=== PATIENT | female | born 1990 | race Caucasian/White ===

== ENCOUNTER → 2021-01-31 11:24 | Outpatient (CLI) | payer BC, OTHER, MEDICAID, SELFPAY ==
--- NOTE | 2021-01-31 11:32 | DI.MRI.S_ITS ---
PROCEDURE: MR LUMBAR SPINE WO CON INDICATIONS: Dorsalgia, unspecified TECHNIQUE: Noncontrast sagittal T1 spin echo and T2 fast echo, sagittal STIR, axial T1 and T2 fast spin echo through the lumbar spine. In cases with scoliosis, additional coronal T2 fast spin echo may be performed. COMPARISON: None. FINDINGS: Image quality: Excellent. Alignment and Curvature: There is normal bony alignment. Bone Marrow: Marrow is of normal overall signal. No acute vertebral body compression fractures. Spinal Cord: Normal appearance and position of the conus the Paraspinous Soft Tissues: No paravertebral masses. T12-L1: No spinal canal or neural foraminal stenosis. L1-L2: No spinal canal or neural foraminal stenosis. L2-L3: No spinal canal or neural foraminal stenosis. L3-L4: No spinal canal or neural foraminal stenosis. L4-L5: Mild disc desiccation and height loss. Circumferential disc bulge minimally flattens the ventral thecal sac. Small foraminal components of the disc bulge combine with facet hypertrophy to produce mild bilateral neural foraminal narrowing. There are small to moderate-sized facet effusions. L5-S1: Disc bulge flattens the left paracentral and subarticular zone thecal sac. No mass effect upon the traversing S1 nerve roots. Foraminal components of the disc bulge contribute to mild neural foraminal narrowing on the left in conjunction with mild facet hypertrophy. IMPRESSION: Mild degenerative changes at L4-L5 and L5-S1 without evidence of focal nerve root impingement. Dictated by: Krzysztof Diaz M.D. on 01/31/2021 at 12:55 Approved by: Krzysztof Diaz M.D. on 01/31/2021 at 13:08
== END ==
PROVIDERS: PCP Physician Assistant Medical; Referring Provider Psychiatry & Neurology Neurology; Visit Provider Psychiatry & Neurology Neurology
DX: M54.9 Dorsalgia, unspecified (principal); M79.605 Pain in left leg; M47.816 Spondylosis without myelopathy or radiculopathy, lumbar region; M47.817 Spondylosis without myelopathy or radiculopathy, lumbosacral region
CPT/HCPCS: 72148

== ENCOUNTER 2021-04-11 07:35 | Emergency (ER) | payer BC, OTHER, MEDICAID, SELFPAY ==
[2021-04-11] VITALS (7 sets, daily range): BP systolic 122–136; BP diastolic 59–80; PULSE 69–82; RESP 18; TEMP 36.4; O2SAT 96–97; BMI 41.8
--- NOTE | 2021-04-11 07:46 | ED.PREGNANCY ---
HPI - General Chief complaint: Urogenital-Female Stated complaint: miscarriage. sent by [facility] ER Time Seen by Provider: 04/11/21 07:46 Source: patient and old records reviewed (Records sent from [facility] [place]) Mode of arrival: Ambulatory Limitations: no limitations History of Present Illness HPI Narrative: This is a 30-year-old female comes emergency department sent from [facility] in [place] for formal ultrasound. Patient states that she is approximately 5 weeks by dates. She states her last menstrual period was March 06, 2021 patient states that she has had some mild nausea, breast tenderness but yesterday developed discomfort after having several episodes of diarrhea in her left lower abdomen that radiated down her leg. That has since resolved although it last for greater than 30 minutes. She did have some mild cramping in her lower abdomen which initially related to having the diarrhea. When that did not resolve she contacted her primary care followed by the nursing hotline who recommended she come to the hospital for evaluation. Patient has not had any fevers. She has had nausea but no vomiting. She denies any abdominal pain. She denies any back or flank pain. She states the pain was really more in the inguinal area. Patient has not had any melena or hematochezia. She denies any dysuria, urgency or sense of frequency. She denies any vaginal bleeding or fluid leakage. Patient did have labs, pelvic exam including a hCG, Rh status and Trichomonas, gonorrhea chlamydia testing at the outside facility in the last 12 hours. Date of Last Menstrual Period: 03/06/21 Patient : Yes Expected Date of Delivery: 12/11/21 Related Data Allergies Allergy/AdvReac Type Severity Reaction Status Date / Time gabapentin Allergy Verified 04/11/21 07:48 Penicillins Allergy Verified 04/11/21 07:48 Review of Systems Review of Systems ROS Unobtainable: All systems reviewed & are unremarkable except as noted in HPI and below PMFSH - Past Medical History Medical history: Reports hypertension Surgical history: Reports appendectomy Date of Last Menstrual Period: 03/06/21 Patient : Yes Expected Date of Delivery: 12/11/21 Exam Narrative Exam Narrative: GENERAL: Alert and oriented x three, well-nourished female in mild distress. HEENT: Head normocephalic, atraumatic, EOMI, pupils reactive, face symmetric, moist mucous membranes NECK: Supple, full range of motion CARDIOVASCULAR: Regular rate and rhythm without murmurs, rubs or gallops. RESPIRATORY: Breath sounds equal bilaterally, no wheezes rales or rhonchi. ABDOMEN: Soft, nontender with palpation. Normoactive bowel sounds all 4 quadrants. No guarding or rebound, rigidity, no mass, no inguinal hernia noted. : No CVA tenderness EXTREMITIES: Normal range of motion, no clubbing or edema. Neurovascularly intact NEUROLOGICAL: Cranial nerves II through XII grossly intact. Moving all extremities SKIN: Warm, dry, no petechiae, no rashes or lesions. Initial Vital Signs Initial Vital Signs: Vital Signs Temperature 97.5 F L 04/11/21 07:49 Pulse Rate 82 04/11/21 07:49 Respiratory Rate 18 04/11/21 07:49 Blood Pressure 124/80 04/11/21 07:49 Pulse Oximetry 96 04/11/21 07:49 Course Orders Ordered: ED Orders 04/11/21 08:54 US OB <= 14 weeks fetus Stat Vital Signs Vital signs: Vital Signs - 8 hr 04/11/21 07:49 04/11/21 08:09 04/11/21 08:10 Temperature 97.5 F L Pulse Rate 82 75 Respiratory Rate 18 Blood Pressure 124/80 136/68 Pulse Oximetry 96 97 96 04/11/21 08:30 04/11/21 09:00 04/11/21 09:01 Temperature Pulse Rate 69 76 78 Respiratory Rate Blood Pressure 123/71 129/59 L Pulse Oximetry 97 97 97 MDM - OB/Uterine Contractions Lab Data Attestation: I reviewed the patient's lab results. Labs: Urine Dip Bedside Urine Glucose Negative Bedside Urine Bilirubin - Negative Bedside Urine Ketone - Negative Urine Specific [place] 1.020 Bedside Urine Occult Blood - Negative Bedside Urine pH 6.5 Bedside Urine Protein - Negative Bedside Urine Urobilinogen - Negative Bedside Urine Nitrite - Negative Bedside Urine Leukocytes - Negative Esterase Imaging Data US - OB: Radiologist's Impression: [address] [address]Pct[place]xycoe ReportSigned Patient: Gwendolyn Estrada LMR#: [id number]: 1990Acct:[id number]/Sex: 30 / FDate of Service: 04/11/21Loc: EDAccession Number: [id number] Procedure: US OB <= 14 weeks fetus Ordering Provider: Monet Pittman D.O. PROCEDURE: US OB <= 14 WEEKS FETUS INDICATIONS: CRAMPING OUTSIDE/PRIOR DATING DATA: Last menstrual period (LMP): 03/06/2021. LMP-based estimated date of delivery (MEENA): 12/11/2021. First dating scan (date and location): [facility], 04/11/2021. Estimated date of delivery (MEENA) from first dating scan: 12/06/2021. TECHNIQUE: Real-time scanning was performed of the fetus and maternal pelvic organs, with image documentation. Endovaginal scanning was also performed to better visualize the fetus and maternal ovaries. COMPARISON: None. FINDINGS: Embryo: A single intrauterine is seen. Cardiac motion is visualized, yet no heart rate can be measured in the M mode. The crown-rump length measures 0.24 cm, corresponding to an estimated gestational age of 5 weeks 6 days. It is too early for detailed anatomic assessment. By visual inspection, the amount of amniotic fluid is within normal limits. A yolk sac can be seen. No significant findings of subchorionic/perigestational hemorrhage are seen. Measurement variability in dating: +/- 4 weeks by LMP, +/- 7 days by mean sac diameter (use before 6 weeks gestation if crown-rump length not able to be measured), +/- 5 days by crown-rump length (up to 8 weeks 6 days gestation), +/- 7 days by crown-rump length (up to 13 weeks 6 days gestation). Maternal organs: The right ovary is unremarkable. The left ovary is not seen. IMPRESSION: A single live intrauterine is seen. Close clinical followup, with serial beta-hCG and serial ultrasound are recommended, if clinically appropriate. Dictated by: Yaniv Mccarthy M.D. on 04/11/2021 at 9:17 Approved by: Yaniv Mccarthy M.D. on 04/11/2021 at 9:19 MDM Narrative Medical decision making narrative: Patient did not have her labs with her and they were not sent in advance. Discussed with patient will try to obtain these she has had them in the last 12 hours for evaluation. For unable to plan to repeat her labs or if we were able to obtain the but any seem appropriate to repeat will have discussion with patient. Patient's labs right her HCG was 15,000. Rh was obtained but had not resulted from the outside facility but patient has had several prior pregnancies and never required RhoGAM so deferred giving today. Ultrasound does show is consistent with patient's current dates. Discussed with patient recommend close follow-up with repeat HCG and serial ultrasound testing patient lives in [place] and they are able to obtain HCG there daily and have US this sunday in 48 hours. Discharge Plan Departure Patient Disposition: Home Clinical Impression: Instructions: DI for Abdominal Pain -- Early Activity Restrictions/Additional Instructions: Follow up with her care provider in the next 24-48 hours for recheck. They may wish to recheck an hCG the next 12-24 hours. Your ultrasound today does show a with dates at 5 weeks and 6 days. They may also wish to recheck with serial ultrasounds. Your hCG was not rechecked as it has only been approximately 12 hours today. Please return for fevers, new or worsening abdominal pain, flank or pelvic pain. Persistent vomiting, vaginal bleeding, lightheadedness, passing out or other new or concerning symptoms. Referrals: Leelee Luque PA-C [Primary Care Provider] -
--- NOTE | 2021-04-11 08:15 | PC.NURSE ---
Patient had 1 episode fo diarrhea last night with pain in abdomen that went down left elg. Went to [facility] and they did blood work with n abnormally high HCG... like 15,000 and an abdominal ultrasound that showed an empty sac. Sent here for transvaginal ultrasound.
--- NOTE | 2021-04-11 08:54 | DI.US.S_ITS ---
PROCEDURE: US OB <= 14 WEEKS FETUS INDICATIONS: CRAMPING OUTSIDE/PRIOR DATING DATA: Last menstrual period (LMP): 03/06/2021. LMP-based estimated date of delivery (MEENA): 12/11/2021. First dating scan (date and location): [facility], 04/11/2021. Estimated date of delivery (MEENA) from first dating scan: 12/06/2021. TECHNIQUE: Real-time scanning was performed of the fetus and maternal pelvic organs, with image documentation. Endovaginal scanning was also performed to better visualize the fetus and maternal ovaries. COMPARISON: None. FINDINGS: Embryo: A single intrauterine is seen. Cardiac motion is visualized, yet no heart rate can be measured in the M mode. The crown-rump length measures 0.24 cm, corresponding to an estimated gestational age of 5 weeks 6 days. It is too early for detailed anatomic assessment. By visual inspection, the amount of amniotic fluid is within normal limits. A yolk sac can be seen. No significant findings of subchorionic/perigestational hemorrhage are seen. Measurement variability in dating: +/- 4 weeks by LMP, +/- 7 days by mean sac diameter (use before 6 weeks gestation if crown-rump length not able to be measured), +/- 5 days by crown-rump length (up to 8 weeks 6 days gestation), +/- 7 days by crown-rump length (up to 13 weeks 6 days gestation). Maternal organs: The right ovary is unremarkable. The left ovary is not seen. IMPRESSION: A single live intrauterine is seen. Close clinical followup, with serial beta-hCG and serial ultrasound are recommended, if clinically appropriate. Dictated by: Yaniv Mccarthy M.D. on 04/11/2021 at 9:17 Approved by: Yaniv Mccarthy M.D. on 04/11/2021 at 9:19
== END 2021-04-11 10:40 | disposition home or self-care (01) ==
PROVIDERS: Emergency Provider Emergency Medicine; PCP Physician Assistant Medical
DX: O26.91 Pregnancy related conditions, unspecified, first trimester (principal); R10.9 Unspecified abdominal pain
CPT/HCPCS: 76801; 76817; 81003; 99283

== ENCOUNTER → 2021-05-02 14:00 | Outpatient (CLI) | payer BC, SELFPAY ==
[2021-05-02 15:44] LABS: Add Manual Diff / Slide Review NO; Basophils Absolute Auto 0 /uL (0-100); Basophils Percent Auto 0.1 % (0-2); Eosinophils Absolute Auto 200 /uL (0-450); Eosinophils Percent Auto 1.5 % (2-4); Hematocrit 40.4 % (36-46); Hemoglobin 13.5 g/dL (12.0-16.0); Lymphocytes Absolute Auto 3600 /uL (1100-4500); Lymphocytes Percent Auto 29.2 % (25-40); Mean Corpuscular HGB Conc 33.5 % (30-36); Mean Corpuscular Hemoglobin 28.6 PG (26-34); Mean Corpuscular Volume 85.6 fL (80-100); Monocytes Absolute Auto 600 /uL (0-900); Monocytes Percent Auto 4.9 % (3-14); Neutrophils Absolute Auto 8000 /uL (1500-7000); Neutrophils Percent Auto 64.3 % (50-75); Platelet Count 315 X10^3/uL (150-400); Red Blood Cell Count 4.72 X10^6/uL (4.0-5.2); Red Cell Distribution Width 13.9 % (11.6-14.8); White Blood Cell Count 12.5 X10^3/uL (4.5-11.0)
[2021-05-02 15:44] LABS: UR Morphine/Opiate cutoff 300 Negative (Negative); Ur Creatinine Normal (Normal); Ur Specific Gravity Normal (Normal); Urine Amphetamines Negative (Negative); Urine Barbiturates Negative (Negative); Urine Benzodiazepines Negative (Negative); Urine Cocaine Negative (Negative); Urine MDMA Negative (Negative); Urine Methadone Negative (Negative); Urine Methamphetamines Negative (Negative); Urine Oxycodone Negative (Negative); Urine Phencyclidine Negative (Negative); Urine Tetrahydrocannabinol Negative (Negative); Urine Tricyclic Antidepressant Negative (Negative); Urine pH Normal (Normal)
[2021-05-02 15:52] LABS: Hemoglobin A1C% w Est Avg Glu 5.6 % (4.0-6.0)
[2021-05-02 16:16] LABS: Appearance Urine UA CLEAR; Bilirubin Urine UA NEGATIVE (NEGATIVE); Color Urine UA YELLOW; Glucose Urine UA NEGATIVE (Negative); Ketones Urine UA NEGATIVE (NEGATIVE); Leukocyte Esterase Urine UA NEGATIVE (NEGATIVE); Nitrite Urine UA NEGATIVE (Negative); Occult Blood Urine UA TRACE-LYSED (Negative); Protein Urine UA NEGATIVE (Negative); Specific Gravity Urine UA 1.025 (1.000-1.035); Urobilinogen Urine UA 0.2 E.U./dL (0.2)
[2021-05-02 16:29] LABS: Glucose 90 mg/dL (70-100)
[2021-05-02 17:04] LABS: Hepatitis B Surface Antigen NEGATIVE s/c (NEGATIVE); Rubella Antibody IgG 20.3 IU/mL (>15)
[2021-05-02 17:16] LABS: HIV 1 & 2 Ab/Ag 4th Gen Combo NEGATIVE (NEGATIVE); Hep C Virus Ab w/Reflex Quant NEGATIVE s/c (NEGATIVE)
[2021-05-02 17:17] LABS: GTT (PREG) 1 Hour PP 50gm Dose 144 mg/dL (76-139)
[2021-05-03 07:10] LABS: RPR Screen Non Reactive (Non Reactive)
[2021-05-03 10:41] LABS: Varicella IgG Antibody 1832 index (Immune >165)
== END ==
PROVIDERS: PCP Physician Assistant Medical; Referring Provider Family Medicine; Visit Provider Family Medicine
DX: O99.210 Obesity complicating pregnancy, unspecified trimester (principal); Z3A.08 8 weeks gestation of pregnancy
CPT/HCPCS: 36415; 80055; 80305; 81003; 82947; 82950; 83036; 86787; 86803; 86850; 86900; 86901; 87077; 87086; 87389

== ENCOUNTER → 2021-06-07 15:08 | Outpatient (CLI) | payer BC, SELFPAY ==
--- NOTE | 2021-06-07 15:15 | DIET.PN ---
Dietary Progress Note Assessment: 30y F attending telehealth visit for GDM, pt is 14w at this time. Pt has not been checking BG, doesn't feel she is really GDM, has had issues in past with hypoglycemia. Pt instructed to check BG morning of our appt but forgot. Pt unable to find glucose log paper then found it, 05/20/21 FBG 89, others 90, 83, 94, 93, 88, 85. Pt has gone past 2w without BG checks. As visit progresses, pt opens up to the process and is receptive to testing twice per day, alternating B/L/D. Pt taking notes during visit. Small meals in general as is feeling some nausea c large meals during Breakfast: small portion eggs c potato hash Lunch: chicken salad c light sanchez on seed bread and green peas Dinner: Soup or stew or grilled steak/chicken and salad HT: 5'11 WT: 303# BMI: 42.3 Labs: A1c 5.6, 1h GTT 144 H Nutrition Diagnosis: altered nutrition related laboratory values (1h GTT) r/t endocrine dysfunction and nutrition related knowledge deficit aeb 1h GTT at 10w elevated 144, pt BMI 42.3, pt reports not knowing what carbs are good vs. bad, pt inconsistent c BG checks. Interventions: 1. Discussed insulin resistance in . Discussed optimal BG readings and how and when to test. FBG <95, 1hPP <140. Pt has agreed to start with 2x/d, always fasting and pick one meal. 2. To support healthy BG levels, educated pt on balanced plate method of carbohydrate counting as pt does not feel she will be consistent with carb counting. Pt patrick a healthy plate, 1/4 PRO, 1/4 CHO, and 1/2 non-starchy veg and fruit with food examples in each category. Reviewed commonly eaten meals by patient and problem solved to fit balanced plate. Pt voiced understanding. Diet Order: CCD3 Monitoring/Evaluations: Telehealth f/u in 2w to review food and BG logs.
== END ==
PROVIDERS: PCP Physician Assistant Medical; Referring Provider Specialist; Visit Provider Specialist
DX: O24.419 Gestational diabetes mellitus in pregnancy, unspecified control (principal); Z3A.14 14 weeks gestation of pregnancy; Z71.3 Dietary counseling and surveillance
CPT/HCPCS: 97803

== ENCOUNTER → 2021-06-21 15:05 | Outpatient (CLI) | payer BC, SELFPAY ==
--- NOTE | 2021-06-21 15:07 | DIET.PN ---
Addendum entered by Lupe Darnell 07/05/21 14:51: phone call c pt on 07/05/21 regarding diet to support cardiovascular health. Mailed pt handouts on Sodium, Sugar, Saturated vs Unsaturated Fat, Dietary Fiber, Anti-Inflammatory Foods. Original Note: Dietary Progress Note GDM telehealth f/u for 30y F at 16w Has tachycardia with Zio patch, has expedited appointment with [facility] tomorrow. Specialist at following pt as well and recommending bid BG checks with 4x on a weekend day, pt sending weekly BG logs to this specialist. Named this child Miguel and states he is picky en utero likes chicken pot pie, spaghetti, fish, meatloaf, carnitas tacos on corn tortillas, chicken Caesar salads. Snacking on apples and string cheese. Pt feels she is eating less junk food and smaller portion sizes since our last visit. FBG this am is 91, no BG >140 PP, highest so far is [address] f/u in 6w when pt is 24w to review BG, eating pattern and address any nutrition concerns at that time.
== END ==
PROVIDERS: PCP Physician Assistant Medical; Referring Provider Specialist; Visit Provider Specialist
DX: Z34.92 Encounter for supervision of normal pregnancy, unspecified, second trimester (principal); R00.0 Tachycardia, unspecified; Z3A.16 16 weeks gestation of pregnancy; Z71.3 Dietary counseling and surveillance
CPT/HCPCS: 97803

== ENCOUNTER → 2021-07-22 08:32 | Outpatient (CLI) | payer BC, OTHER, SELFPAY ==
--- NOTE | 2021-07-22 08:34 | DI.ECHO.S_ITS ---
[facility]---------+ [facility] +---------+ : : [address] : : : : [id number] : : : : Phone: [phone] Echocardiogram Report + + :Name: KEDAR RAMIREZ Study Date: 07/22/2021 Height: 71 in : [facility] ReadingLocation: Weight: 300 lb : : Gender: Female BSA: 2.5 m2 : :: 1990 Age: 30 yrs BP: 115/89 mmHg: :Reason For Study: SVT : :Ordering Physician: ISRRAEL, : :AKASH Performed By: Omar Javed : :Referring: AKASH ARCOS : + + Interpretation Summary The left ventricle is normal in size and wall thickness. The ejection fraction is estimated to be 60-65%. The right ventricle is normal in size and function. No significant valvular pathology seen. The IVC is of normal diameter and collapses greater than 50% with a sniff. This suggests a low right atrial pressure of 3 mm Hg. Procedure: A two-dimensional transthoracic echocardiogram with color flow and Doppler was performed. The study quality was technically adequate. There is no prior echocardiogram noted for this patient. The patient was in normal sinus rhythm during the exam. Left Ventricle: The left ventricle is normal in size and wall thickness. There is no thrombus. Left ventricular systolic function is normal. The ejection fraction is estimated to be 60-65%. There are no focal wall motion abnormalities. MV E/A: 1.1 Med Peak E' Marc: 8.0 cm/sec E/E' med: 8.7. Right Ventricle: The right ventricle is normal in size and function. Atria: Both atria are normal in size. There is no Doppler evidence for an interatrial shunt. Mitral Valve: The mitral valve is normal in structure and function. Redundant elongated chordae are noted. There is no mitral regurgitation noted. Aortic Valve: The aortic valve is normal in structure and function. The aortic valve is trileaflet. There is no aortic valve stenosis. No aortic regurgitation is present. Tricuspid Valve: The tricuspid valve is not well visualized, but is grossly normal. No tricuspid regurgitation. Pulmonary artery pressures cannot be estimated because of the lack of a measurable TR jet velocity but the IVC suggests a CVP of around 3 mmHg. Pulmonic Valve: The pulmonic valve is normal in structure and function. There is trace pulmonic regurgitation. Great Vessels: The aortic root is normal size. The dimensions of the ascending aorta are normal. The IVC is of normal diameter and collapses greater than 50% with a sniff. This suggests a low right atrial pressure of 3 mm Hg. Pericardium/ Pleura There is no pericardial effusion. There is no pleural effusion. MMode/2D Measurements & Calculations LVIDd: 4.9 cm LVOT diam: 2.3 cm LVIDs: 3.3 cm Ao root diam: 3.5 cm FS: 33.7 % asc Aorta Diam: 3.1 cm IVSd: 1.0 cm LVPWd: 0.90 cm LV floyd. diameter/BSA (cm/m^2): 2.0 LV sys. diameter/BSA (cm/m^2): 1.3 LA A2 area: 17.9 cm2 RA long axis: 4.8 cm LA A4 area: 16.5 cm2 RA area: 12.5 cm2 LA length (vol): 4.9 cm RA vol: 27.3 ml LA vol: 50.7 ml RA : 10.9 ml/m2 LA vol index: 20.2 ml/m2 TAPSE: 2.5 cm Doppler Measurements & Calculations Ao V2 max: 159.2 cm/sec LVOT Max Marc: 139.4 cm/sec Ao V2 mean: 104.6 cm/sec LV V1 max P.8 mmHg Ao max P.1 mmHg LV V1 VTI: 21.0 cm Ao mean P.9 mmHg REEMA(I,D): 3.6 cm2 Ao V2 VTI: 24.1 cm REEMA(V,D): 3.6 cm2 sev ratio: 0.87 REEMA indexed to BSA (cm^2/m^2): 1.5 MV E max marc: 69.8 cm/sec PA pr(Accel): 22.5 mmHg MV A max marc: 64.4 cm/sec MV E/A: 1.1 Med Peak E' Marc: 8.0 cm/sec E/E' med: 8.7 Lat Peak E' Marc: 12.8 cm/sec E/E' lat: 5.4 E/e' average: 7.1 MV dec time: 0.27 sec SV(LVOT): 87.5 ml Reading Physician:05:31 PM
== END ==
PROVIDERS: PCP Physician Assistant Medical; Referring Provider Family Medicine; Visit Provider Family Medicine
DX: O99.419 Diseases of the circulatory system complicating pregnancy, unspecified trimester (principal); I47.1 Supraventricular tachycardia
CPT/HCPCS: 93306

== ENCOUNTER → 2021-08-02 14:04 | Outpatient (CLI) | payer BC, SELFPAY ==
--- NOTE | 2021-08-02 14:06 | DIET.PN1 ---
Dietary Progress Note RD telehealth f/u for 30y F with heart condition and gestational diabetes with due date in late Nov 2021. Pt has 4 visits at as she is enrolled in research study using CGM for GDM. Pt loves the fact that she gets to use CGM as it gives her real-time data on how the foods she eats affects her BG and body. Pt followed by highway engineering teacher at . Pt has had a huge shift in mindset since our last visit. She reports her is on board now with dietary changes and they have sat down several times to strategize on handouts I gave her. Positive changes include: purchase of airfryer- pt used to deep crowley foods on a weekly basis, pt now only using oil-free air fryer. pt and spouse now reading all food labels for sodium content, only purchasing low sodium foods including convenience foods and canned items. pt avoiding saturated fat and fatty cuts of means, instead choosing lean proteins and game meats. Pt very upbeat during consultation as she feels her eyes have been opened to healthy eating and she, her , and son are all benefiting and feeling better with the new habits they are developing. Pt looks forward to continuing healthy eating pattern even after of new son. F/U in 4w to assess progress and problem solve barriers.
== END ==
PROVIDERS: PCP Physician Assistant Medical; Referring Provider Physician Assistant Medical; Visit Provider Physician Assistant Medical
DX: O24.419 Gestational diabetes mellitus in pregnancy, unspecified control (principal); O26.899 Other specified pregnancy related conditions, unspecified trimester; I47.1 Supraventricular tachycardia
CPT/HCPCS: 97803

== ENCOUNTER 2021-09-12 20:43 | Observation (INO) | payer BC, SELFPAY ==
[2021-09-12] MEDS: LACTATED RINGERS 1,000 ML 150 ML IV (22:18)
[2021-09-12] MEDS: ACETAMINOPHEN 325 MG TABLET 975 MG PO (22:18)
[2021-09-13] MEDS: LACTATED RINGERS 1,000 ML 150 ML IV (07:55)
[2021-09-13 08:39] LABS: COVID19 - ADMIT (NP swab/PCR) Negative (Negative)
--- NOTE | 2021-09-13 09:20 | DI.US.S_ITS ---
PROCEDURE: US RENAL COMPLETE INDICATIONS: RIGHT FLANK PAIN TECHNIQUE: Real-time scanning was performed of the kidneys and bladder, with image documentation. COMPARISON: [facility] Outside Film, CT, CT ABDOMEN PELVIS WITH CONTRAST, 12/08/2019, 12:05. FINDINGS: Kidneys: Right kidney measures 14.3 cm long. The renal cortex thickness measures 1.6 cm. Mild hydronephrosis. A 1.6 cm shadowing echogenic focus is seen in the lower pole. The left kidney measures 13.8 cm long. The renal cortical thickness is 2.2 cm. Bladder: Pre-void bladder volume is 287 mL. Post-void residual is 0 mL. Pre-void images demonstrate no intraluminal masses or stones. On pre-void images, no ureteral jets are noted with color Doppler interrogation. (Of note, ureteral jets may not be detectable in up to 25% of cases due to insufficient differences in specific gravity between ureteral and bladder urine). Miscellaneous: No free pelvic fluid. An intrauterine gestation is seen with heart rate measuring 139 beats per minute. Incidentally, a 3.2 x 2.1 x 3 cm, hypoechoic mass is seen in the right hepatic lobe, which may exhibit internal vascularity. IMPRESSION: 1. Mild right hydronephrosis with 1.6 mm nonobstructive calculus in the lower pole. 2. Hypoechoic lesion in the right hepatic lobe, incompletely characterized. Differential considerations include focal fatty sparing versus focal nodular hyperplasia. Nonemergent magnetic resonance imaging may be helpful for further characterization. Dictated by: Marco Ellison M.D. on 09/13/2021 at 9:29 Approved by: Marco Ellison M.D. on 09/13/2021 at 9:41
[2021-09-13] MEDS: ACETAMINOPHEN 325 MG TABLET 975 MG PO (09:21)
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
== END 2021-09-13 11:46 | disposition home or self-care (01) ==
PROVIDERS: Family Medicine; Admitting Provider Nurse Practitioner Obstetrics & Gynecology; PCP Physician Assistant Medical; Referring Provider Nurse Practitioner Obstetrics & Gynecology; Visit Provider Nurse Practitioner Obstetrics & Gynecology
DX: O26.893 Other specified pregnancy related conditions, third trimester (principal); N20.0 Calculus of kidney; K76.9 Liver disease, unspecified; Z3A.28 28 weeks gestation of pregnancy; Z20.822 Contact with and (suspected) exposure to COVID-19
CPT/HCPCS: 76770; 87635; C9803; G0378; G0379

== ENCOUNTER → 2021-09-26 13:56 | Outpatient (CLI) | payer OTHER, SELFPAY ==
--- NOTE | 2021-09-26 13:58 | DI.US.S_ITS ---
PROCEDURE: US OB LIMITED INDICATIONS: GROWTH SCAN OUTSIDE/PRIOR DATING DATA: Last menstrual period (LMP): 03/06/2021 . LMP-based estimated date of delivery (MEENA): 12/11/2021 . First dating scan (date and location): 04/11/2021 . Estimated date of delivery (MEENA) from first dating scan: 12/06/2021 TECHNIQUE: Real-time scanning was performed of the fetus, with image documentation and biometric measurements. Biophysical profile was also obtained. Endovaginal scanning: Not performed COMPARISON: None. FINDINGS: General: A single living intrauterine gestation is present. Presentation: Breech. Placenta: Placental position is posterior , without previa. Amniotic fluid index: 11.8 cm, normal range is 5-24 cm. heart rate: 145 beats per minute. Maternal cervical canal: 4.6 cm long. Normal lower limit is 2.5 cm. biometrics: Biparietal diameter: 7.7 cm, 30 week 5 day Head circumference: 29.1 cm, 32 week 0 day Abdominal circumference: 25 cm, 29 week 1 day Femur length: 5.7 cm, 29 week 6 day Estimated gestational age from initial scan: 29 week 6 day Composite gestational age from present scan: 30 week 3 day Estimated weight and percentile: 1450 g, 34 percentile Measurement variability for biometric dating: +/- 7 days from 14 weeks to 15 weeks 6 days gestation, +/- 10 days from 16 weeks to 21 weeks 6 days gestation, +/- 2 weeks from 22 weeks to 27 weeks 6 days gestation, +/- 3 weeks for 28 weeks gestation or later. weight reference: 4500 g or EFW >90/95% is considered macrosomia or large for gestational age. EFW <10% is small for gestational age. EFW 5% or less is considered intra-uterine growth restriction. IMPRESSION: 1. Single live intrauterine consistent with a 30 week 3 day gestation by current ultrasound Approved by: Brennon Qiu M.D. on 09/26/2021 at 15:39
== END ==
PROVIDERS: Referring Provider Family Medicine; Visit Provider Family Medicine
DX: Z36.89 Encounter for other specified antenatal screening (principal); Z3A.30 30 weeks gestation of pregnancy
CPT/HCPCS: 76815

== ENCOUNTER 2021-10-12 21:42 | Emergency (ER) | payer OTHER, SELFPAY ==
[2021-10-12 22:45] VITALS: BP 126/67; PULSE 98; RESP 18; TEMP 37.1; O2SAT 96; BMI 45.6
--- NOTE | 2021-10-12 23:05 | PC.NURSE ---
Has known kidney stones on the right. Started having pain today, thought it was contractions. [place] [facility] [place] [facility].
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
--- NOTE | 2021-10-12 23:21 | DI.US.S_ITS ---
PROCEDURE: US RENAL COMPLETE INDICATIONS: POSSIBLE LEFT KIDNEY STONE TECHNIQUE: Real-time scanning was performed of the kidneys and bladder, with image documentation. COMPARISON: None. FINDINGS: Kidneys: Kidneys are normal in size. Right kidney measures 14.7 cm long; left kidney measures 15.0 cm long. Right renal cortical thickness is 2.0 cm; left renal cortical thickness is 3.0 cm. Renal cortical echotexture is normal. No hydronephrosis. 1.6 centimeter nonobstructing stone noted in the inferior pole of the right kidney. 1.0 centimeter nonobstructing stone noted in the inferior pole of left kidney. No suspicious solid mass lesions. Bladder: Fully decompressed at time of imaging and cannot be evaluated. Miscellaneous: No free pelvic fluid. IMPRESSION: Bilateral nonobstructing renal cortical stones. No hydronephrosis. Dictated by: Latoya Lawler MD, PhD on 10/13/2021 at 0:26 Approved by: Latoya Lawler MD, PhD on 10/13/2021 at 0:28
[2021-10-13 00:36] LABS: Add Manual Diff / Slide Review NO; Basophils Absolute Auto 0 /uL (0-100); Basophils Percent Auto 0.2 % (0-2); Eosinophils Absolute Auto 200 /uL (0-450); Eosinophils Percent Auto 1.9 % (2-4); Hematocrit 32.1 % (36-46); Hemoglobin 10.8 g/dL (12.0-16.0); Lymphocytes Absolute Auto 2800 /uL (1100-4500); Lymphocytes Percent Auto 22.6 % (25-40); Mean Corpuscular HGB Conc 33.7 % (30-36); Mean Corpuscular Hemoglobin 27.6 PG (26-34); Mean Corpuscular Volume 81.9 fL (80-100); Monocytes Absolute Auto 900 /uL (0-900); Monocytes Percent Auto 7.1 % (3-14); Neutrophils Absolute Auto 8500 /uL (1500-7000); Neutrophils Percent Auto 68.2 % (50-75); Platelet Count 321 X10^3/uL (150-400); Red Blood Cell Count 3.92 X10^6/uL (4.0-5.2); Red Cell Distribution Width 15.4 % (11.6-14.8); White Blood Cell Count 12.4 X10^3/uL (4.5-11.0)
[2021-10-13 00:58] LABS: BUN Creatinine Ratio 10.2 (6-22); Blood Urea Nitrogen 5 mg/dL (7-17); Carbon Dioxide 21 mmol/L (22-32); Chloride 108 mmol/L (98-107); Estimated Glomerular Filt Rate > 60.0 mL/min (>60); Glucose 105 mg/dL (70-100); HEMOLYSIS < 15 (0-50); Potassium 3.5 mmol/L (3.4-5.1); Sodium 137 mmol/L (137-145)
[2021-10-13 01:35] VITALS: BP 119/73; PULSE 89; RESP 17; O2SAT 97
--- NOTE | 2021-10-13 01:36 | PC.NURSE ---
Discussed d/c paperwork with pt. Answered all questions. Pt ambulated out of Department at time of discharge.
== END 2021-10-13 01:37 | disposition home or self-care (01) ==
PROVIDERS: Emergency Provider Emergency Medicine; Referring Provider Obstetrics & Gynecology
DX: O26.899 Other specified pregnancy related conditions, unspecified trimester (principal); R31.9 Hematuria, unspecified; O99.330 Smoking (tobacco) complicating pregnancy, unspecified trimester; Z3A.00 Weeks of gestation of pregnancy not specified; F17.200 Nicotine dependence, unspecified, uncomplicated
CPT/HCPCS: 59025; 76770; 80048; 85025; 99281; 99284; G0378; G0379

== ENCOUNTER 2021-10-25 09:49 | Outpatient (CLI) | payer OTHER, MEDICAID, SELFPAY ==
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
== END 2021-10-25 10:40 | disposition home or self-care (01) ==
LOC: OB 10-27 13:38
PROVIDERS: Referring Provider Family Medicine; Visit Provider Family Medicine
DX: O41.03X0 Oligohydramnios, third trimester, not applicable or unspecified (principal); Z3A.34 34 weeks gestation of pregnancy
CPT/HCPCS: 59025; G0378; G0379

== ENCOUNTER 2021-10-28 12:13 | Outpatient (CLI) | payer OTHER, MEDICAID, SELFPAY ==
--- NOTE | 2021-10-28 12:18 | DI.US.S_ITS ---
PROCEDURE: US OB BIOPHYSICAL PROFILE INDICATIONS: BIOPHYSICAL PROFILE AND AMNIOTIC FLUID INDEX. OUTSIDE/PRIOR DATING DATA: Last menstrual period (LMP): March 06, 2021 LMP-based estimated date of delivery (MEENA): December 11, 2021 First dating scan (date and location): April 11, 2021 Estimated date of delivery (MEENA) from first dating scan: December 06, 2021 The calculations are made using the ultrasound MEENA of December 06, 2021 TECHNIQUE: Real-time scanning was performed of the fetus for biophysical profile, with image documentation. Color and pulse Doppler interrogation was also performed of the umbilical artery near its insertion into the placenta. Endovaginal scanning: Performed COMPARISON: None. FINDINGS: General: A single living intrauterine gestation is present. Presentation: Breech Placenta: Placental position is posterior, without previa. Amniotic fluid index: 5.9 cm, normal range is 5-24 cm. Single largest amniotic fluid pocket: 3.1 centimeters. heart rate: 133 beats per minute. Maternal cervical canal: Not evaluated Biophysical profile: Tone: 2 points. Movement: 2 points. Respiration: 2 points. Largest pocket of fluid: 2 points. Umbilical artery Doppler: Not evaluated IMPRESSION: 1. Single living intrauterine in breech position. 2. Amniotic fluid index/largest single amniotic fluid pocket at lower limits of normal. 3. Biophysical profile score 8/8. Dictated by: Latoya Lawler MD, PhD on 10/28/2021 at 13:56 Approved by: Latoya Lawler MD, PhD on 10/28/2021 at 14:00
--- NOTE | 2021-10-28 12:22 | DI.US.S_ITS ---
PROCEDURE: US RENAL COMPLETE INDICATIONS: PAIN TECHNIQUE: Real-time scanning was performed of the kidneys and bladder, with image documentation. COMPARISON: None. FINDINGS: Kidneys: Kidneys are normal in size. Right kidney measures 14.5 cm long; left kidney measures 16.5 cm long. Right renal cortical thickness is 2.6 cm; left renal cortical thickness is 2.8 cm. Renal cortical echotexture is normal. There are 1.2 and 1.0 centimeter stones in the inferior right kidney. [id number] right-sided hydronephrosis is noted with proximal right ureter dilated to 1.4 centimeters. 1.0 centimeter nonobstructing stone noted in the left kidney. No suspicious solid mass lesions. Bladder: Pre-void bladder volume is 84 mL. Post-void residual is 0 mL. Pre-void images demonstrate no intraluminal masses or stones. On pre-void images, right ureteral jet is noted with color Doppler interrogation. (Of note, ureteral jets may not be detectable in up to 25% of cases due to insufficient differences in specific gravity between ureteral and bladder urine). Miscellaneous: No free pelvic fluid. IMPRESSION: 1. Bilateral renal cortical stones. 2. Gnzj-[id number] right-sided hydroureteronephrosis. Dictated by: Latoya Lawler MD, PhD on 10/28/2021 at 13:50 Approved by: Latoya Lawler MD, PhD on 10/28/2021 at 13:53
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
== END 2021-10-28 13:05 | disposition home or self-care (01) ==
LOC: LABOR 13:09 → OB 11-01 14:21
PROVIDERS: Referring Provider Family Medicine; Visit Provider Family Medicine
DX: O24.913 Unspecified diabetes mellitus in pregnancy, third trimester (principal); O41.03X0 Oligohydramnios, third trimester, not applicable or unspecified; Z3A.34 34 weeks gestation of pregnancy
CPT/HCPCS: 59025; 76770; 76819; G0378; G0379

== ENCOUNTER 2021-10-31 09:55 | Outpatient (CLI) | payer OTHER, MEDICAID, SELFPAY ==
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
== END 2021-10-31 11:08 | disposition home or self-care (01) ==
LOC: LABOR 11:00 → OB 11-01 14:23
PROVIDERS: Referring Provider Family Medicine; Visit Provider Family Medicine
DX: O41.00X0 Oligohydramnios, unspecified trimester, not applicable or unspecified (principal); O24.410 Gestational diabetes mellitus in pregnancy, diet controlled; N20.0 Calculus of kidney; O26.893 Other specified pregnancy related conditions, third trimester; Z3A.34 34 weeks gestation of pregnancy
CPT/HCPCS: 59025; G0378; G0379

== ENCOUNTER 2021-11-02 11:47 | Observation (INO) | payer OTHER, MEDICAID, SELFPAY ==
--- NOTE | 2021-11-02 | DI.US.S_ITS ---
PROCEDURE: US OB BIOPHYSICAL PROFILE INDICATIONS: Decreased movement, borderline oligohydramnios OUTSIDE/PRIOR DATING DATA: Last menstrual period (LMP): 03/06/2021. LMP-based estimated date of delivery (MEENA): 12/11/2021 First dating scan (date and location): 04/11/2021. Estimated date of delivery (MEENA) from first dating scan: 12/06/2021. The calculations are made using the ultrasound MEENA of 12/06/2021. TECHNIQUE: Real-time scanning was performed of the fetus for biophysical profile, with image documentation. Color and pulse Doppler interrogation was also performed of the umbilical artery near its insertion into the placenta. Endovaginal scanning: Not performed COMPARISON: [facility], , US OB BIOPHYSICAL PROFILE, 10/28/2021, 13:16. FINDINGS: General: A single living intrauterine gestation is present. Presentation: Breech/oblique. Placenta: Placental position is posterior and to the right , without previa. Amniotic fluid index: 7.4 cm, normal range is 5-24 cm. Largest pocket 3.5 cm heart rate: 130 beats per minute. Maternal cervical canal: 3.9 cm long. Normal lower limit is 2.5 cm. Clinically estimated gestational age: 35 weeks 1 day Estimated gestational age from initial scan: 35 weeks 1 day. Biophysical profile: Tone: 2 points. Movement: 2 points. Respiration: 0 points. Largest pocket of fluid: 2 points. IMPRESSION: Living 3rd trimester intrauterine . Ultrasound biophysical profile is 6/8 We strive to produce accurate, complete, and clear reports of imaging services. To assist us in improving patient care, this report was composed using standard report templates and voice recognition software. Therefore, it may contain abnormal punctuation, insertions and/or omissions. Occasional wrong-word or sound-alike substitutions may occur. Though we review the report and make efforts to correct it, we do recommend that the report be read carefully in proper context to recognize any text inaccuracies. Dictated by: Kushal Parker M.D. on 11/02/2021 at 17:41 Approved by: Kushal Parker M.D. on 11/02/2021 at 17:43
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
--- NOTE | 2021-11-02 15:22 | DIET.PN1 ---
Dietary Progress Note RD Note: 31y 36w F c GDM admitted for monitoring secondary to reduced movements and uterine contractions. Pt well known to this RD for early GDM visits prior to pt enrolling in study at for GDM c CGM in place. Provider ordered General Diet 2400kcal ADA, kitchen alerted RD. RD updated to CCD3 which is equivalent diet familiar to kitchen staff. Diet: 11/02/21 Dinner Carbohydrate Consistent Diet Diet Modifications: Carbohydrate level: Medium (3 CHO) Bedtime snack: Yes Electronically Signed by: Lupe Darnell 11/02/21 15:22 Clinical Dietitian [address] [address]
[2021-11-02] MEDS: NIFEdipine 10 MG CAPSULE PO ×4 (15:28→16:29)
[2021-11-02 17:13] LABS: Appearance Urine UA CLEAR; Bilirubin Urine UA NEGATIVE (NEGATIVE); Color Urine UA YELLOW; Glucose Urine UA NEGATIVE (Negative); Ketones Urine UA 1+ (NEGATIVE); Leukocyte Esterase Urine UA NEGATIVE (NEGATIVE); Nitrite Urine UA NEGATIVE (Negative); Occult Blood Urine UA NEGATIVE (Negative); Protein Urine UA NEGATIVE (Negative); Urobilinogen Urine UA 0.2 E.U./dL (0.2)
== END 2021-11-02 17:29 | disposition home or self-care (01) ==
PROVIDERS: Admitting Provider Obstetrics & Gynecology; Referring Provider Obstetrics & Gynecology; Visit Provider Obstetrics & Gynecology
DX: O60.03 Preterm labor without delivery, third trimester (principal); Z3A.35 35 weeks gestation of pregnancy; O36.8130 Decreased fetal movements, third trimester, not applicable or unspecified; O24.419 Gestational diabetes mellitus in pregnancy, unspecified control
CPT/HCPCS: 59025; 59050; 76819; 81003; 87086; G0378; G0379

== ENCOUNTER 2021-11-07 08:52 | Outpatient (CLI) | payer OTHER, MEDICAID, SELFPAY ==
--- NOTE | 2021-11-07 09:18 | DI.US.S_ITS ---
PROCEDURE: US OB BIOPHYSICAL PROFILE INDICATIONS: borderline ATIF, GDM OUTSIDE/PRIOR DATING DATA: Last menstrual period (LMP): 03/06/2021. LMP-based estimated date of delivery (MEENA): 12/11/2021. First dating scan (date and location): 04/11/2021. Estimated date of delivery (MEENA) from first dating scan: 12/06/2021. TECHNIQUE: Real-time scanning was performed of the fetus, with image documentation and biometric measurements. Biophysical profile was also obtained. COMPARISON: [facility], OB BIOPHYSICAL PROFILE, 11/02/2021, 16:30. FINDINGS: General: A single living intrauterine gestation is present. Presentation: Breech. Placenta: Placental position is posterior , without previa. Amniotic fluid index: 10.2 cm, normal range is 5-24 cm. heart rate: 144 beats per minute. Maternal cervical canal: Not assessed biometrics: Composite gestational age from initial scan: 35 weeks 6 days Biophysical profile: Tone: 2 points. Movement: 2 points. Respiration: 2 points. Largest pocket of fluid: 2 points. IMPRESSION: 1. Single live intrauterine . 2. BPP 8/8. 3. ATIF 10.2 cm, compared to 7.4 cm on prior exam. We strive to produce accurate, complete, and clear reports of imaging services. To assist us in improving patient care, this report was composed using standard report templates and voice recognition software. Therefore, it may contain abnormal punctuation, insertions and/or omissions. Occasional wrong-word or sound-alike substitutions may occur. Though we review the report and make efforts to correct it, we do recommend that the report be read carefully in proper context to recognize any text inaccuracies. Dictated by: Sharona Tsai M.D. on 11/07/2021 at 10:24 Approved by: Sharona Tsai M.D. on 11/07/2021 at 10:27
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
== END 2021-11-07 10:29 | disposition home or self-care (01) ==
LOC: LABOR 10:12 → OB 11-08 13:47
PROVIDERS: Referring Provider Family Medicine; Visit Provider Family Medicine
DX: O24.410 Gestational diabetes mellitus in pregnancy, diet controlled (principal); O32.1XX0 Maternal care for breech presentation, not applicable or unspecified; Z3A.35 35 weeks gestation of pregnancy
CPT/HCPCS: 59025; 76819; G0378; G0379

== ENCOUNTER 2021-11-10 08:24 | Outpatient (CLI) | payer OTHER, MEDICAID, SELFPAY ==
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
== END 2021-11-10 09:10 | disposition home or self-care (01) ==
LOC: LABOR 08:41 → OB 11-14 14:40
PROVIDERS: Referring Provider Family Medicine; Visit Provider Family Medicine
DX: O24.419 Gestational diabetes mellitus in pregnancy, unspecified control (principal); O32.1XX0 Maternal care for breech presentation, not applicable or unspecified; Z3A.36 36 weeks gestation of pregnancy
CPT/HCPCS: 59025; G0378; G0379

== ENCOUNTER 2021-11-10 15:55 | Outpatient (CLI) | payer OTHER, MEDICAID, SELFPAY ==
[2021-11-10] MEDS: LACTATED RINGERS 1,000 ML 1000 ML IV (18:13)
[2021-11-10 18:35] LABS: Add Manual Diff / Slide Review NO; Basophils Absolute Auto 0 /uL (0-100); Basophils Percent Auto 0.2 % (0-2); Eosinophils Absolute Auto 100 /uL (0-450); Hemoglobin 11.6 g/dL (12.0-16.0); Lymphocytes Absolute Auto 2600 /uL (1100-4500); Lymphocytes Percent Auto 20.4 % (25-40); Mean Corpuscular HGB Conc 33.2 % (30-36); Mean Corpuscular Hemoglobin 26.9 PG (26-34); Mean Corpuscular Volume 81.2 fL (80-100); Monocytes Absolute Auto 800 /uL (0-900); Neutrophils Absolute Auto 9300 /uL (1500-7000); Neutrophils Percent Auto 72.4 % (50-75); Platelet Count 323 X10^3/uL (150-400); Red Blood Cell Count 4.31 X10^6/uL (4.0-5.2); Red Cell Distribution Width 16.1 % (11.6-14.8); White Blood Cell Count 12.8 X10^3/uL (4.5-11.0)
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
[2021-11-10] MEDS: TERBUTALINE 1 MG/ML VIAL 0.25 MG SUBCUT (19:00)
[2021-11-10 19:25] LABS: COVID19 -Nasal RAPID Negative (Negative)
== END 2021-11-10 22:00 | disposition home or self-care (01) ==
LOC: LABOR 15:57 → OB 11-14 14:41
PROVIDERS: Obstetrics & Gynecology; Referring Provider Family Medicine; Visit Provider Family Medicine
DX: O47.03 False labor before 37 completed weeks of gestation, third trimester (principal); O32.1XX0 Maternal care for breech presentation, not applicable or unspecified; Z3A.36 36 weeks gestation of pregnancy; Z20.822 Contact with and (suspected) exposure to COVID-19; O24.419 Gestational diabetes mellitus in pregnancy, unspecified control
CPT/HCPCS: 36415; 59025; 59050; 59412; 76815; 85025; 86850; 86900; 86901; 87635; 96360; 96361; 96372; C9803; G0378; G0379

== ENCOUNTER 2021-11-15 07:45 | Observation (INO) | payer OTHER, MEDICAID, SELFPAY ==
--- NOTE | 2021-11-15 09:29 | DI.US.S_ITS ---
PROCEDURE: US OB BIOPHYSICAL PROFILE INDICATIONS: BPP OUTSIDE/PRIOR DATING DATA: Last menstrual period (LMP): March 06, 2021 LMP-based estimated date of delivery (MEENA): December 11, 2021 First dating scan (date and location): April 11, 2021. Estimated date of delivery (MEENA) from first dating scan: December 06, 2021 The calculations are made using the ultrasound MEENA of December 06, 2021 TECHNIQUE: Real-time scanning was performed of the fetus for biophysical profile, with image documentation. Color and pulse Doppler interrogation was also performed of the umbilical artery near its insertion into the placenta. Endovaginal scanning: Performed COMPARISON: [facility], [facility] FIRST [facility], 04/15/2021, 10:44. [facility] OB <= 14 WEEKS FETUS, 04/11/2021, 9:34. [facility] OB LIMITED, 09/26/2021, 14:19. [facility] OB BIOPHYSICAL PROFILE, 11/07/2021, 9:44. [facility] OB BIOPHYSICAL PROFILE, 11/02/2021, 16:30. [facility] OB BIOPHYSICAL PROFILE, 10/28/2021, 13:16. FINDINGS: General: A single living intrauterine gestation is present. Presentation: Breech Placenta: Placental position is posterior right, without previa. Amniotic fluid index: 9.5 cm, normal range is 5-24 cm. Single deepest vertical pocket is 4.7 cm. heart rate: 143 beats per minute. Maternal cervical canal: Not measured. Estimated gestational age from initial scan: 37 weeks 0 days Biophysical profile: Tone: 2 points. Movement: 2 points. Respiration: 2 points. Largest pocket of fluid: 2 points. IMPRESSION: 1. Single living intrauterine . 2. Normal amniotic fluid index measuring 9.5 centimeters. 3. Biophysical profile score 8/8. Dictated by: Latoya Lawler MD, PhD on 11/15/2021 at 16:05 Approved by: Latoya Lawler MD, PhD on 11/15/2021 at 16:09 We strive to produce accurate, complete, and clear reports of imaging services. To assist us in improving patient care, this report was composed using standard report templates and voice recognition software. Therefore, it may contain abnormal punctuation, misrecognitions, insertions and/or omissions. Occasional wrong-word or sound-alike substitutions may occur. Though we review the report and make efforts to correct it, we do recommend that the report be read carefully in proper context to recognize any text inaccuracies.
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
== END 2021-11-15 09:55 | disposition home or self-care (01) ==
PROVIDERS: Admitting Provider Family Medicine; Referring Provider Family Medicine; Visit Provider Family Medicine
DX: O24.419 Gestational diabetes mellitus in pregnancy, unspecified control (principal); O47.1 False labor at or after 37 completed weeks of gestation; Z3A.37 37 weeks gestation of pregnancy
CPT/HCPCS: 59025; 76819; G0378; G0379

== ENCOUNTER 2021-11-16 19:00 | Outpatient (CLI) | payer OTHER, MEDICAID, SELFPAY | END 2021-11-16 20:58 | disposition home or self-care (01) | LOC: LABOR 19:07 → OB 11-22 07:27 | PROVIDERS: Referring Provider Obstetrics & Gynecology; Visit Provider Obstetrics & Gynecology | DX: O47.1 False labor at or after 37 completed weeks of gestation (principal); Z3A.37 37 weeks gestation of pregnancy | CPT/HCPCS: 59025; G0378; G0379 ==

== ENCOUNTER 2021-11-17 13:51 | Outpatient (CLI) | payer OTHER, MEDICAID, SELFPAY | END 2021-11-17 15:30 | disposition home or self-care (01) | LOC: LABOR 15:05 → OB 11-22 07:27 | PROVIDERS: Referring Provider Family Medicine; Visit Provider Family Medicine | DX: O47.1 False labor at or after 37 completed weeks of gestation (principal); O99.333 Smoking (tobacco) complicating pregnancy, third trimester; W19.XXXA Unspecified fall, initial encounter; Z3A.37 37 weeks gestation of pregnancy | CPT/HCPCS: 59025; G0378; G0379 ==

== ENCOUNTER 2021-11-18 17:01 | Outpatient (CLI) | payer OTHER, MEDICAID, SELFPAY ==
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
== END 2021-11-18 18:15 | disposition home or self-care (01) ==
LOC: OB 11-22 07:29
PROVIDERS: Referring Provider Nurse Practitioner Obstetrics & Gynecology; Visit Provider Nurse Practitioner Obstetrics & Gynecology
DX: O47.1 False labor at or after 37 completed weeks of gestation (principal); O32.1XX0 Maternal care for breech presentation, not applicable or unspecified; Z3A.37 37 weeks gestation of pregnancy
CPT/HCPCS: 59025; 76815; G0378; G0379

== ENCOUNTER 2021-11-22 11:44 | Outpatient (CLI) | payer OTHER, MEDICAID, SELFPAY ==
--- NOTE | 2021-11-22 13:09 | DI.US.S_ITS ---
PROCEDURE: US OB BIOPHYSICAL PROFILE INDICATIONS: ATIF OUTSIDE/PRIOR DATING DATA: Last menstrual period (LMP): 03/06/2021 LMP-based estimated date of delivery (MEENA): 12/11/2021 First dating scan (date and location): 04/11/2021 Estimated date of delivery (MEENA) from first dating scan: 12/06/2021 The calculations are made using the ultrasound MEENA of 12/06/2021 TECHNIQUE: Real-time scanning was performed of the fetus for biophysical profile, with image documentation. Endovaginal scanning: Not performed. COMPARISON: [facility], OB BIOPHYSICAL PROFILE, 11/15/2021, 9:56. FINDINGS: General: A single living intrauterine gestation is present. Presentation: Breech Placenta: Placental position is posterior right, without previa. Amniotic fluid index: 7.6 cm, normal range is 5-24 cm. Single deepest vertical pocket is 2.5 cm. heart rate: 147 beats per minute. Maternal cervical canal: Not well visualized. Estimated gestational age from initial scan: 38 weeks 0 days Biophysical profile: Tone: 2 points. Movement: 2 points. Respiration: 2 points. Largest pocket of fluid: 2 points. Umbilical artery Doppler: Not evaluated IMPRESSION: 1. Single live intrauterine . 2. Amniotic fluid index is 7.6 cm with deepest vertical pocket of 2.5 cm. 3. Biophysical profile score is 8 of 8. We strive to produce accurate, complete, and clear reports of imaging services. To assist us in improving patient care, this report was composed using standard report templates and voice recognition software. Therefore, it may contain abnormal punctuation, insertions and/or omissions. Occasional wrong-word or sound-alike substitutions may occur. Though we review the report and make efforts to correct it, we do recommend that the report be read carefully in proper context to recognize any text inaccuracies. Dictated by: Abdiaziz Roberts M.D. on 11/22/2021 at 15:01 Approved by: Abdiaziz Roberts M.D. on 11/22/2021 at 15:04
== END 2021-11-22 13:05 | disposition home or self-care (01) ==
LOC: LABOR 11:46 → OB 11-24 11:18
PROVIDERS: Referring Provider Family Medicine; Visit Provider Family Medicine
DX: O32.1XX0 Maternal care for breech presentation, not applicable or unspecified (principal); O99.333 Smoking (tobacco) complicating pregnancy, third trimester; Z3A.38 38 weeks gestation of pregnancy
CPT/HCPCS: 59025; 76819; G0378; G0379

== ENCOUNTER 2021-11-26 09:53 | Observation (INO) | payer OTHER, MEDICAID, SELFPAY ==
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
== END 2021-11-26 12:45 | disposition home or self-care (01) ==
PROVIDERS: Admitting Provider Obstetrics & Gynecology; Referring Provider Obstetrics & Gynecology; Visit Provider Obstetrics & Gynecology
DX: O24.419 Gestational diabetes mellitus in pregnancy, unspecified control (principal); O99.413 Diseases of the circulatory system complicating pregnancy, third trimester; I47.1 Supraventricular tachycardia; O32.1XX0 Maternal care for breech presentation, not applicable or unspecified; O99.213 Obesity complicating pregnancy, third trimester; O26.893 Other specified pregnancy related conditions, third trimester; O22.13 Genital varices in pregnancy, third trimester; R06.00 Dyspnea, unspecified; Z3A.38 38 weeks gestation of pregnancy
CPT/HCPCS: 59025; 59050; G0378; G0379

== ENCOUNTER 2021-11-29 10:15 | Outpatient (CLI) | payer OTHER, MEDICAID, SELFPAY ==
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
[2021-11-29 13:27] VITALS: BP 132/68
[2021-11-29 13:28] VITALS: BP 132/68; PULSE 100; RESP 20; TEMP 36.8
== END 2021-11-29 12:35 | disposition home or self-care (01) ==
LOC: LABOR 13:48 → OB 11-30 11:58
PROVIDERS: Referring Provider Family Medicine; Visit Provider Family Medicine
DX: O24.419 Gestational diabetes mellitus in pregnancy, unspecified control (principal); Z3A.39 39 weeks gestation of pregnancy
CPT/HCPCS: 59025; G0378; G0379

== ENCOUNTER 2021-11-30 11:50 | Inpatient (IN) | payer OTHER, MEDICAID, SELFPAY ==
[2021-11-30 12:56] LABS: Add Manual Diff / Slide Review NO; Basophils Absolute Auto 0 /uL (0-100); Basophils Percent Auto 0.3 % (0-2); Eosinophils Absolute Auto 100 /uL (0-450); Eosinophils Percent Auto 0.8 % (2-4); Hematocrit 35.3 % (36-46); Hemoglobin 11.7 g/dL (12.0-16.0); Lymphocytes Absolute Auto 2100 /uL (1100-4500); Lymphocytes Percent Auto 19.2 % (25-40); Mean Corpuscular Hemoglobin 26.4 PG (26-34); Mean Corpuscular Volume 80.1 fL (80-100); Monocytes Absolute Auto 500 /uL (0-900); Monocytes Percent Auto 4.4 % (3-14); Neutrophils Absolute Auto 8400 /uL (1500-7000); Neutrophils Percent Auto 75.3 % (50-75); Platelet Count 331 X10^3/uL (150-400); Red Blood Cell Count 4.41 X10^6/uL (4.0-5.2); Red Cell Distribution Width 16.9 % (11.6-14.8); White Blood Cell Count 11.2 X10^3/uL (4.5-11.0)
[2021-11-30] MEDS: LACTATED RINGERS 1,000 ML 42 ML IV ×3 (13:00→16:53)
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
--- NOTE | 2021-11-30 13:38 | PM.PREOP ---
Pre-operative Note COVID-19 COVID-19 status: Negative Result date/Date tested (Pos, Neg/Pending): 11/30/21 Interval Note History & Physical reviewed/Exam performed by Physician: Yes Changes to H&P: No
[2021-11-30 13:39] LABS: COVID19 -Nasal RAPID Negative (Negative)
[2021-11-30 13:40] VITALS: BP 110/63
[2021-11-30] MEDS: GENTAMICIN 600 MG in SODIUM CHLORIDE 0.9% 100 ML 115 ML IV (14:05)
[2021-11-30] MEDS: CLINDAMYCIN 600 MG/50 ML PIGGYBACK 50 MG IV (14:48)
--- NOTE | 2021-11-30 14:54 | SUR.OPER ---
FHT's 140. Cord blood and placenta to OB with OB Rn..
--- NOTE | 2021-11-30 14:55 | SUR.OPER ---
Supine on Padded OR bed, head on pillow, safety belt at thigh, arms secured on padded arm boards at <90 degrees abduction. Bump under right buttock. Legs uncrossed with pillow under knees, gel pad to heels, tape over blanket to lower legs.
[2021-11-30] MEDS: ACETAMINOPHEN IV 1,000 MG/100 ML VIAL 400 MG IV (15:10)
--- NOTE | 2021-11-30 15:23 | SUR.OPER ---
Live male, breech presentation, born @1459.
[2021-11-30 15:53] VITALS: BP 132/76; PULSE 87; RESP 14; TEMP 36.2; O2SAT 97
[2021-11-30 15:57] VITALS: BP 136/81; PULSE 96; RESP 16; TEMP 36.6; O2SAT 98
[2021-11-30 16:02] VITALS: BP 134/81; PULSE 89; RESP 16; TEMP 36.6; O2SAT 98
[2021-11-30 16:07] VITALS: BP 133/76; PULSE 89; RESP 16; TEMP 36.7; O2SAT 96
--- NOTE | 2021-11-30 16:47 | P.OP_ITS ---
Operative Date/Time/Diagnoses Date of procedure: 08/30/22 Time of procedure: 14:15 Pre-op diagnosis: 39w1d gestation Breech presentation Diabetes in Paroxysmal SVT Rh positive Post-op diagnosis: same Procedure & Clinicians Procedure: Primary Same procedure as scheduled: Yes Indications: Breech presentation Surgeon: Ijeoma Blake Click Yes if Unassisted: No Manager Delivery: Keith Cantu Anesthesia Type: Spinal Operative Notes Findings: Normal uterus, ovaries, tubes Closure Type: primary Intraoperative meds administered: Duramorph, Ketorolac and Pitocin Applied: Catheter Estimated Blood Loss (mL): 600 Blood products transfused: none Procedure in detail: OPERATIVE COURSE: The patient was taken to the operating room where spinal anesthesia was placed. She was then prepared and draped in the normal sterile fashion in the dorsal supine position with a leftward tilt. Anesthesia was tested and found to be adequate. A Pfannensteil skin incision was then made with the scalpel and carried through to the underlying layer of fascia with the scalpel. The fascia was incised in the midline and the incision extended laterally with the Denson scissors. The superior aspect of the fascial incision was then grasped with Alexsandra clamps, elevated with the help of the surgical physician assistant, and the underlying rectus muscles dissected off bluntly and sharply where needed. Attention was then turned to the inferior aspect of the incision which, in a similar fashion, was grasped, tented up with Alexsandra clamps, and the rectus muscle dissected off bluntly and sharply with Denson scissors. The rectus muscles were then in the midline, and the peritoneum was identified and entered bluntly. The peritoneal incision was then extended with good visualization of the bladder. Retraction was provided by the surgical physician assistant. The bladder blade was then inserted and the vesicouterine peritoneum identified, grasped with pick-ups and entered sharply with the Metzenbaum scissors. The incision was then extended laterally and the bladder flap created digitally. The bladder blade was then reinserted and the lower uterine segment incised in a transverse fashion with the scalpel, with the surgical physician assistant providing suction. The uterine incision was then extended superolaterally by pulling superolaterally on both sides. Membranes were ruptured and fluid was clear. The bladder blade was removed. buttocks was delivered with gentle fundal pressure by the accounting assistant. A wet towel was then wrapped around the . Anterior arm was delivered, and the was rotated 180 degrees and the other arm delivered. The 's head then delivered easily. The nose and mouth were suctioned with bulb suction and the cord was clamped and cut. The was handed off to the waiting nursing staff. Cord blood was collected for Rh status. The placenta was then delivered with gentle cord traction. The uterus was then exteriorized and cleared of all clots and debris. The uterine incision was repaired with O-Vicryl in a running, locked fashion. A second layer of the same suture was used for imbrication. The uterus was returned to the abdomen. The gutters were cleared of all clots. Hysterotomy was investigated. A single [id number] with O-Vicryl was used on the right aspect of the hysterotomy, with excellent hemostasis obtained afterwards. The peritoneum was closed with 3-O Vicryl. The fascia was reapproximated with O-Vicryl in a running fashion. The subcutaneous tissue was reapproximated with 3-O Vicryl. The skin was closed with 4-O Vicryl. The surgical physician assistant helped with retraction during closures. ROM APPEARANCE: Clear BABY A DELIVERY TIME: 14:59 BABY A OUTCOME: Viable SPONGE AND NEEDLE COUNTS: Correct x3. DRESSING: Aquacel ANTICOAGULATION: SCDs applied prior to Surgery Preop antibiotics given (see MAR). The patient was taken to recovery room having tolerated procedure well. Baby 1: Gender: Male Presentation: breech Placental Delivery Description: Spontaneous Cord Vessel Description: 3 Vessels score (1 min): 9 score (5 min): 9 weight: 8 lb 10.732 oz Post-operative Condition: stable Disposition: PACU Aftercare: routine postop
[2021-11-30] MEDS: KETOROLAC 30 MG/ML VIAL IV (21:38)
[2021-12-01] MEDS: OXYCODONE IR 5 MG TABLET PO ×6 (00:56→21:44)
[2021-12-01] MEDS: KETOROLAC 30 MG/ML VIAL IV (03:30)
[2021-12-01] MEDS: diphenhydrAMINE 50 MG/ML VIAL 25 MG IV (06:52)
[2021-12-01 07:28] LABS: Add Manual Diff / Slide Review NO; Basophils Absolute Auto 0 /uL (0-100); Basophils Percent Auto 0.1 % (0-2); Eosinophils Absolute Auto 100 /uL (0-450); Eosinophils Percent Auto 0.7 % (2-4); Hematocrit 30.6 % (36-46); Hemoglobin 10.3 g/dL (12.0-16.0); Lymphocytes Absolute Auto 2300 /uL (1100-4500); Lymphocytes Percent Auto 18.9 % (25-40); Mean Corpuscular HGB Conc 33.7 % (30-36); Mean Corpuscular Hemoglobin 27.2 PG (26-34); Mean Corpuscular Volume 80.9 fL (80-100); Monocytes Absolute Auto 500 /uL (0-900); Monocytes Percent Auto 4.3 % (3-14); Neutrophils Absolute Auto 9100 /uL (1500-7000); Platelet Count 251 X10^3/uL (150-400); Red Blood Cell Count 3.78 X10^6/uL (4.0-5.2); Red Cell Distribution Width 17.4 % (11.6-14.8)
[2021-12-01] MEDS: PRENATAL VIT,CALC/IRON/FOLIC 1 TABLET 1 TAB PO (08:25)
[2021-12-01] MEDS: ACETAMINOPHEN 325 MG TABLET 650 MG PO ×3 (08:25→21:08)
[2021-12-01 08:26] VITALS: BP 133/83; PULSE 97
[2021-12-01] MEDS: DOCUSATE 100 MG CAPSULE 200 MG PO (08:26)
[2021-12-01] MEDS: METOPROLOL ER 25 MG TABLET PO (08:26)
[2021-12-01] MEDS: IBUPROFEN 600 MG TABLET PO ×3 (09:27→21:08)
--- NOTE | 2021-12-01 10:03 | P.PNOB_ITS ---
Subjective - OB Subjective Date Patient Seen: 12/01/21 Time Patient Seen: 10:03 Interval history: The pt reports that overall she is feeling well. She has only ambulated once so far, with robbins recently removed. She has not yet passed flatus. Her lochia is decreasing appropriately. Baby is more awake now, and recently latched well. She has not yet voided. Exam Vital Signs (past 8 hours): - 12/01/21 08:26 Pulse Rate 97 H Blood Pressure 133/83 Oxygen Delivery Method Room Air Resp Auscultation: clear to auscultation bilaterally Cardio Rate: regular rate Rhythm: regular rhythm Heart Sounds: S1 normal, S2 normal and no murmurs GI Inspection: non-distended, incision (dressing c/d/i) and obesity Palpation: soft, No guarding and tender (appropriately tender) Auscultation: normal bowel sounds Other: fundus firm and below the umbilicus Extrem Right upper extremity: No no edema Objective Labs Result Diagrams: 12/01/21 06:56 Labs: Laboratory Results - last 24 hr 11/30/21 11/30/21 11/30/21 12:45 12:45 12:45 WBC 11.2 H RBC 4.41 Hgb 11.7 L Hct 35.3 L MCV 80.1 MCH 26.4 MCHC 33.0 RDW 16.9 H Plt Count 331 Neut % (Auto) 75.3 H Lymph % (Auto) 19.2 L [place] % (Auto) 4.4 Eos % (Auto) 0.8 L Baso % (Auto) 0.3 Neut # (Auto) 8400 H Lymph # (Auto) 2100 [place] # (Auto) 500 Eos # (Auto) 100 Baso # (Auto) 0 SARS-CoV-2 (PCR) Negative Blood Type A Positive Antibody Screen Negative 12/01/21 06:56 WBC 12.0 H RBC 3.78 L Hgb 10.3 L Hct 30.6 L MCV 80.9 MCH 27.2 MCHC 33.7 RDW 17.4 H Plt Count 251 Neut % (Auto) 76.0 H Lymph % (Auto) 18.9 L [place] % (Auto) 4.3 Eos % (Auto) 0.7 L Baso % (Auto) 0.1 Neut # (Auto) 9100 H Lymph # (Auto) 2300 [place] # (Auto) 500 Eos # (Auto) 100 Baso # (Auto) 0 SARS-CoV-2 (PCR) Blood Type Antibody Screen Assessment & Plan Plan Comments: 31yo POD#1 s/p primary for breech presentation. Pt doing well. - Normal /postoperative care - support - Plan on 6 wk PP 2hr GTT and A1C Time Spent With Patient Time: Total time spent is greater than 50% in coordination of care (as documented) at patient's floor/unit and/or counseling patient: Time with patient: less than 15 minutes
[2021-12-01 21:19] VITALS: BP 130/61; PULSE 73
[2021-12-01] MEDS: METOPROLOL ER 25 MG TABLET 12.5 MG PO (21:19)
[2021-12-02] MEDS: OXYCODONE IR 10 MG TABLET PO (01:14)
[2021-12-02] MEDS: ACETAMINOPHEN 325 MG TABLET 650 MG PO ×2 (03:48→08:52)
[2021-12-02] MEDS: IBUPROFEN 600 MG TABLET PO ×2 (03:48→08:52)
[2021-12-02] MEDS: OXYCODONE IR 5 MG TABLET PO ×2 (06:32→08:53)
[2021-12-02 07:58] VITALS: BP 124/64; PULSE 73; RESP 16; TEMP 36.6
--- NOTE | 2021-12-02 08:02 | PM.OBDS.1 ---
Discharge Providers Provider Date of admission: 11/30/21 11:50 Discharge Date: 12/02/21 Consults: 11/30/21 19:42 Consult to Project Construction Assistant Manager Routine Comment: Discharge provider: Ijeoma Blake MD Summary Hospital Course Date Patient Seen: 12/02/21 Time Patient Seen: 08:12 Diagnoses: 39w1d gestation Primary Breech presentation Paroxysmal SVT Diabetes in Rh positive Hospital Course: The pt presented for primary for breech presentation. The surgery was without complications, and she delivered a viable baby boy. , there were no complications. At the time of discharge she was voiding, ambulating, and passing flatus without difficulty. She was with good latch. Her lochia was decreasing appropriately. Her pain was well controlled. She will f/u in clinic in 3 days for incision check. She is undecided regarding contraception. Peripartum Data Delivery Method: Section Procedures: Primary complications: none [place] 1: Gender: Male Disposition of : home Discharge Diagnosis (1) S/P : Status: Acute (2) Breech presentation of fetus: Status: Acute (3) Gestational diabetes: Status: Acute (4) SVT (supraventricular tachycardia): Status: Acute Problem Details: Panic attack heart rate : over 200 bpm Status at Discharge Cognitive/behavioral status at discharge: oriented Functional status at discharge: independent ambulation Overall status at discharge: patient is progressing back to baseline Time Spent with Patient Time attestation: Total time spent providing and/or coordinating discharge services: Objective Labs Result Diagrams: 12/01/21 06:56 Exam Vital Signs (past 8 hours): - 12/02/21 07:58 Temperature 97.8 F Pulse Rate 73 Respiratory Rate 16 Blood Pressure 124/64 Oxygen Delivery Method Room Air Resp Auscultation: clear to auscultation bilaterally Cardio Rate: regular rate Rhythm: regular rhythm Heart Sounds: S1 normal, S2 normal and no murmurs GI Inspection: non-distended, incision (dressing c/d/i) and obesity Palpation: soft, No guarding and tender (appropriately tender) Auscultation: normal bowel sounds Other: fundus firm and below the umbilicus Extrem Right upper extremity: No no edema Discharge Plan Discharge Plan Patient Disposition: Home Discharge orders & Medications Prescriptions: New acetaminophen 325 mg Tablet 650 mg PO Q6H PRN (Reason: Fever/Mild Pain (1-3)) Qty: 30 0RF docusate sodium 100 mg Capsule 200 mg PO DAILY Qty: 30 0RF ibuprofen 600 mg Tablet 600 mg PO Q6H PRN (Reason: Fever/Mild Pain (1-3)) Qty: 30 0RF oxycodone 5 mg Tablet 10 mg PO Q4H PRN (Reason: Pain, Moderate (4-6)) Qty: 40 0RF Continued metoprolol succinate 25 mg tablet extended release 24 hr See Rx Instructions PO BID Qty: 60 2RF Rx Instructions: Take 1 table in the morning, 1/2 tablet in the evening prenat.vits,lolis,[id number] Tablet 1 tab PO DAILY 0RF albuterol sulfate 90 mcg/actuation HFA aerosol inhaler 2 puff inhalation Q6H PRN (Reason: Bronchodilation) 0RF No Action (DME) glucometer See Rx Instructions .Route .MEDSUPPLY Qty: 1 0RF Rx Instructions: test blood sugar four times daily (DME) lancets See Rx Instructions .Route .MEDSUPPLY Qty: 120 3RF Rx Instructions: Use to test blood sugar four times daily (DME) Test Strips See Rx Instructions .Route .MEDSUPPLY Qty: 120 3RF Rx Instructions: Use to test blood sugar four times daily Follow up/Referrals: Ijeoma Blake MD [Physician] - 12/05/21 12:15 pm Diet/Activity/Treatments Diet: Feed on demand Skin/Wound/Dressing Care Report to your healthcare provider any signs of infection, such as:: chills, fever, increased pain and unusual drainage Visit Report/Discharge Packet Instructions: DI for Stand Alone Forms: Discharge: Care Visit Report Forms: Patient Portal/API, Stroke Signs & Symptoms
[2021-12-02] MEDS: PRENATAL VIT,CALC/IRON/FOLIC 1 TABLET 1 TAB PO (08:52)
[2021-12-02] MEDS: DOCUSATE 100 MG CAPSULE 200 MG PO (08:52)
== END 2021-12-02 09:05 | disposition home or self-care (01) | DRG 788 ==
PROVIDERS: Admitting Provider Family Medicine; Referring Provider Family Medicine; Visit Provider Family Medicine
PROC: 10D00Z1 Extraction of Products of Conception, Low, Open Approach (ICD-10-PCS; CPT 59514; principal; 2021-11-30 14:15)
DX: O64.1XX0 Obstructed labor due to breech presentation, not applicable or unspecified (principal); O24.420 Gestational diabetes mellitus in childbirth, diet controlled; O99.891 Other specified diseases and conditions complicating pregnancy; I48.0 Paroxysmal atrial fibrillation; Z79.01 Long term (current) use of anticoagulants; O99.344 Other mental disorders complicating childbirth; F32.9 Major depressive disorder, single episode, unspecified; F41.9 Anxiety disorder, unspecified; Z37.0 Single live birth; Z3A.39 39 weeks gestation of pregnancy; Z20.822 Contact with and (suspected) exposure to COVID-19; O24.419 Gestational diabetes mellitus in pregnancy, unspecified control
CPT/HCPCS: 36415; 59025; 59050; 59510; 59514; 85025; 86850; 86900; 86901; 87635; C9803; J0131; J1200; J1885; J2274; J2590; J3010

== ENCOUNTER → 2023-06-28 07:42 | Outpatient (CLI) | payer OTHER, SELFPAY ==
--- NOTE | 2023-06-28 | DI.MRI.S_ITS ---
PROCEDURE: MR LUMBAR SPINE WO CON INDICATIONS: LUMBAR PAIN TECHNIQUE: Noncontrast sagittal T1 spin echo and T2 fast echo, sagittal STIR, and T2 fast spin echo through the lumbar spine. In cases with scoliosis, additional coronal T2 fast spin echo may be performed. COMPARISON: [facility], , L-SPINE WITHOUT CONTRAST, 06/13/2010, 12:13. FINDINGS: Image quality: Excellent. Alignment and Curvature: There is normal bony alignment. Bone Marrow: Marrow is of normal overall signal. No acute vertebral body compression fractures. Spinal Cord: Conus medullaris terminates at the L1 level. Visualized cord demonstrates normal signal and size. Paraspinous Soft Tissues: No paravertebral masses. T12-L1: Normal appearance. L1-L2: Normal appearance. L2-L3: Normal appearance. L3-L4: Disc bulge. Very mild facet hypertrophy. No canal stenosis or foraminal stenosis. L4-L5: Disc bulge. Facet hypertrophy. Mild canal stenosis. There is a left foraminal annulus tear subjacent to the exiting left L4 nerve root with moderate foraminal narrowing secondary to foraminal disc bulge and mild compression on the exiting left L4 nerve root. L5-S1: Minimal disc bulge. Facet hypertrophy. No canal stenosis. Moderate bilateral foraminal narrowing with mild flattening deformity on the exiting bilateral L5 nerve roots. IMPRESSION: 1. At L4-L5, there is a left foraminal annulus tear subjacent to the exiting left L4 nerve root with associated disc bulge and mild compression on the exiting left L4 nerve root. Question: Does this patient have symptoms of left L4 radiculitis? 2. There is lower lumbar facet arthropathy. 3. Mild canal stenosis at L4-L5. 4. Moderate bilateral foraminal narrowing at L5-S1. Dictated by: Kushal Parker M.D. on 06/28/2023 at 8:54 Approved by: Kushal Parker M.D. on 06/28/2023 at 9:05
== END ==
PROVIDERS: PCP Physician Assistant Medical; Referring Provider Physician Assistant Medical; Visit Provider Physician Assistant Medical
DX: M54.15 Radiculopathy, thoracolumbar region (principal); M51.36 Other intervertebral disc degeneration, lumbar region; M47.816 Spondylosis without myelopathy or radiculopathy, lumbar region; M48.061 Spinal stenosis, lumbar region without neurogenic claudication; M48.07 Spinal stenosis, lumbosacral region
CPT/HCPCS: 72148

== ENCOUNTER → 2024-02-13 11:52 | Outpatient (CLI) | payer OTHER, SELFPAY ==
[2024-02-13 12:53] LABS: Add Manual Diff / Slide Review NO; Basophils Absolute Auto 0 /uL (0-100); Basophils Percent Auto 0.2 % (0-2); Eosinophils Absolute Auto 200 /uL (0-450); Eosinophils Percent Auto 2.9 % (2-4); Hematocrit 40.7 % (36-46); Hemoglobin 13.7 g/dL (12.0-16.0); Lymphocytes Absolute Auto 3200 /uL (1100-4500); Lymphocytes Percent Auto 40.8 % (25-40); Mean Corpuscular HGB Conc 33.7 % (30-36); Mean Corpuscular Hemoglobin 29.4 PG (26-34); Mean Corpuscular Volume 87.2 fL (80-100); Monocytes Absolute Auto 400 /uL (0-900); Monocytes Percent Auto 4.6 % (3-14); Neutrophils Absolute Auto 4100 /uL (1500-7000); Neutrophils Percent Auto 51.5 % (50-75); Platelet Count 276 X10^3/uL (150-400); Red Blood Cell Count 4.67 X10^6/uL (4.0-5.2); White Blood Cell Count 7.9 X10^3/uL (4.5-11.0)
[2024-02-13 13:06] LABS: Prothrombin Time 11.5 SECONDS (9.4-12.5)
[2024-02-13 13:08] LABS: PTT Partial Thromboplastin Tim 38 SECONDS (25.1-36.5)
[2024-02-13 13:21] LABS: BUN Creatinine Ratio 14.3 (6-22); Blood Urea Nitrogen 9 mg/dL (7-17); Calcium 9.6 mg/dL (8.4-10.2); Carbon Dioxide 25 mmol/L (22-32); Chloride 109 mmol/L (98-107); Estimated Glomerular Filt Rate > 60 mL/min (>60); Glucose 93 mg/dL (70-100); HEMOLYSIS < 15 (0-50); Sodium 139 mmol/L (137-145)
== END ==
PROVIDERS: PCP Physician Assistant Medical; Referring Provider Physical Medicine & Rehabilitation; Visit Provider Physical Medicine & Rehabilitation
DX: Z01.818 Encounter for other preprocedural examination (principal); Z51.81 Encounter for therapeutic drug level monitoring; Z01.812 Encounter for preprocedural laboratory examination
CPT/HCPCS: 36415; 80048; 85025; 85610; 85730; 93005; 93010